=== PATIENT | female | born 1935 | race Hispanic/Latino ===

== ENCOUNTER 2021-03-05 23:49 | Inpatient (IN) | payer MEDICARE, OTHER ==
[~2021-03-05] VITALS: Ht 156.7 cm; Wt 112.7 kg
[2021-03-06] VITALS (18 sets, daily range): BP systolic 112–154; BP diastolic 49–80
[2021-03-06 00:52] LABS: BASOPHILS % (AUTO) 0.3 % (0.0-5.0); EOSINOPHILS % (AUTO) 1.3 % (0.0-8.0); HEMATOCRIT 34.9 % (36-48); LYMPHOCYTES % (AUTO) 27.8 % (21.0-51.0); MEAN CORPUSCULAR HEMOGLOBIN 28.9 pg (27.0-33.0); MEAN CORPUSCULAR HGB CONC 30.9 g/dL (32.0-36.0); MEAN CORPUSCULAR VOLUME 93.3 fL (79-99); MONOCYTES % (AUTO) 13.3 % (3.0-13.0); NEUTROPHILS % (AUTO) 56.7 % (40.0-77.0); PLATELET COUNT (AUTO) 270 K/uL (130-400); RED BLOOD CELL COUNT(AUTO) 3.74 MIL/uL (4.00-5.50); RED CELL DISTRIBUTION WIDTH 16.5 % (11.0-15.5); WHITE BLOOD COUNT (AUTO) 14.3 K/uL (4.8-10.8)
[2021-03-06 01:03] LABS: CREATININE 0.6 mg/dL (0.5-1.5); INR 1.04 (0.85-1.15); POTASSIUM 4.6 mmol/L (3.5-5.1); PROTHROMBIN TIME 11.3 SEC (9.6-11.6)
[2021-03-06 01:05] LABS: PARTIAL THROMBOPLASTIN TIME 26.4 SEC (26.3-35.5)
[2021-03-06 01:08] LABS: ALBUMIN 3.1 g/dL (3.5-5.0); BILIRUBIN,TOTAL 0.3 mg/dL (0.2-1.0); TOTAL PROTEIN, SERUM 6.8 g/dL (6.0-8.3)
[2021-03-06 01:10] LABS: B-TYPE NATRIURETIC PEPTIDE 358 pg/mL (0-100)
[2021-03-06 01:26] LABS: ABG BASE EXCESS 5.6 mmol/L (-2.0-3.0); ABG HCO3 33.1 mmol/L (21.0-28.0); ABG OXYGEN SATURATION 75.9 % (95.0-99.0); ABG PCO2 60 mmHg (32-45)
[2021-03-06] MEDS ORDERED: ASPIRIN 81MG CHEW TAB PO ONE (01:30)
[2021-03-06] MEDS ORDERED: FUROSEMIDE 40MG VIAL IV ONE (01:30)
[2021-03-06] MEDS ORDERED: ATOR10TA69 PO (02:07)
[2021-03-06] MEDS ORDERED: LOSA25TA41 PO (02:07)
[2021-03-06] MEDS ORDERED: FOLI1TAB85 PO (02:07)
[2021-03-06] MEDS ORDERED: GABA300C PO (02:07)
[2021-03-06] MEDS ORDERED: SERT-438 PO (02:07)
[2021-03-06] MEDS ORDERED: SITA50TA PO (02:07)
[2021-03-06] MEDS ORDERED: METO50TA18 PO (02:07)
[2021-03-06] MEDS ORDERED: ONDANSETRON 4MG INJ IV PRN (02:30)
[2021-03-06] MEDS ORDERED: MORPHINE 4 MG SYG IV PRN (02:30)
[2021-03-06 02:49] LABS: APPEARANCE,URINE Clear (CLEAR); BILIRUBIN,URINE Negative (NEGATIVE); COLOR,URINE Yellow (YELLOW); GLUCOSE, URINE (UA) Negative (NEGATIVE); KETONES,URINE Negative (NEGATIVE); LEUKOCYTE ESTERASE ,URINE Negative (NEGATIVE); NITRATE,URINE Negative (NEGATIVE); OCCULT BLOOD,URINE Nonhemolyzed Trace (NEGATIVE); PROTEIN,URINE POS 1+ mg/dL (NEGATIVE); UROBILINOGEN,URINE 0.2 mg/dL (0.2-1.0)
[2021-03-06] MEDS ORDERED: SODIUM CHLORIDE 3% FOR INHALATION 4 ML/AMP VIAL.NEB IH ONE (02:51)
[2021-03-06] MEDS: NITROGLYCERIN 1GM OINT 1 INCH/1GM TD SCH ×3 (02:56→17:42)
[2021-03-06] MEDS: CEFTRIAXONE 1G VIAL IV SCH (02:56)
[2021-03-06 03:05] LABS: BACTERIA,URINE None Seen /HPF (None Seen); SQUAMOUS EPITHELIAL CELL,UR Rare /HPF (0-2); WBC,URINE 0-1 /HPF (0-1)
[2021-03-06] MEDS: DOXYCYCLINE 100MG+NS 250ML 250 ML IV SCH ×2 (03:13→14:57)
[2021-03-06] MEDS ORDERED: ALBUTEROL 0.083% 2.5 MG/3 ML INH IH PRN (06:00)
[2021-03-06] MEDS ORDERED: SOLU-MEDROL 125MG VIAL IVP SCH (06:10)
[2021-03-06] MEDS ORDERED: FUROSEMIDE 40MG VIAL IVP SCH (09:00)
[2021-03-06 09:14] LABS: CREATININE 0.6 mg/dL (0.5-1.5); POTASSIUM 4.5 mmol/L (3.5-5.1)
[2021-03-06] MEDS: FAMOTIDINE 20MG VIAL IV SCH (10:32)
[2021-03-06] MEDS: ENOXAPARIN SODIUM 40 MG/0.4 ML SYRINGE SQ SCH (10:34)
[2021-03-06 12:00] LABS: ABG HCO3 37.4 mmol/L (21.0-28.0); ABG OXYGEN SATURATION 97.2 % (95.0-99.0); ABG PCO2 68 mmHg (32-45)
[2021-03-06] MEDS: FUROSEMIDE 40MG VIAL IV SCH ×2 (12:00→20:13)
[2021-03-06] MEDS ORDERED: DEXTROSE 50%-WATER 50 ML DISP.SYRIN IV PRN (14:00)
[2021-03-06] MEDS ORDERED: GLUCAGON 1MG KIT 1 MG ML IM PRN (14:00)
[2021-03-06] MEDS: GABAPENTIN 300 MG CAPSULE PO SCH ×2 (14:57→20:12)
[2021-03-06] MEDS: INSULIN HUMULIN R 100 UNIT/ML 3ML SQ SCH ×2 (16:30→20:15)
[2021-03-06 17:14] LABS: CREATININE 0.7 mg/dL (0.5-1.5); POTASSIUM 4.7 mmol/L (3.5-5.1)
[2021-03-06] MEDS: METOPROLOL TARTRATE 50 MG TAB PO SCH (17:42)
[2021-03-06] MEDS ORDERED: POTASSIUM CHLORIDE 10% ELIXIR 20 MEQ/15 ML UDCUP PO PRN (18:30)
[2021-03-06] MEDS ORDERED: POTASSIUM CHLORIDE 20MEQ/100ML 100 ML IV PRN (18:30)
[2021-03-06] MEDS ORDERED: LIDOCAINE HCL-MPF 1% 2ML VIAL IV PRN (18:30)
[2021-03-06] MEDS: ATORVASTATIN 10 MG TABLET PO SCH (20:12)
[2021-03-06] MEDS: SERTRALINE HCL 50 MG TABLET PO SCH (20:12)
[2021-03-06] MEDS: SOLU-MEDROL 125MG VIAL IVP SCH (20:13)
[2021-03-07] VITALS (25 sets, daily range): BP systolic 118–161; BP diastolic 48–95
[2021-03-07 00:36] LABS: CREATININE 0.8 mg/dL (0.5-1.5); POTASSIUM 5.1 mmol/L (3.5-5.1)
[2021-03-07] MEDS: CEFTRIAXONE 1G VIAL IV SCH (02:03)
[2021-03-07] MEDS: DOXYCYCLINE 100MG+NS 250ML 250 ML IV SCH ×2 (02:03→13:01)
[2021-03-07] MEDS: NITROGLYCERIN 1GM OINT 1 INCH/1GM TD SCH ×3 (02:04→19:07)
[2021-03-07 03:34] LABS: BASOPHILS % (AUTO) 0.2 % (0.0-5.0); LYMPHOCYTES % (AUTO) 20.7 % (21.0-51.0); MEAN CORPUSCULAR HEMOGLOBIN 29.2 pg (27.0-33.0); MEAN CORPUSCULAR HGB CONC 30.9 g/dL (32.0-36.0); MEAN CORPUSCULAR VOLUME 94.4 fL (79-99); MONOCYTES % (AUTO) 2.5 % (3.0-13.0); NEUTROPHILS % (AUTO) 75.9 % (40.0-77.0); PLATELET COUNT (AUTO) 269 K/uL (130-400); RED CELL DISTRIBUTION WIDTH 16.1 % (11.0-15.5); WHITE BLOOD COUNT (AUTO) 9.5 K/uL (4.8-10.8)
[2021-03-07 03:43] LABS: HEMOGLOBIN A1C 5.7 % (4.0-6.0)
[2021-03-07 03:48] LABS: CREATININE 0.8 mg/dL (0.5-1.5); POTASSIUM 4.4 mmol/L (3.5-5.1)
[2021-03-07 03:56] LABS: ALBUMIN 2.9 g/dL (3.5-5.0); BILIRUBIN,TOTAL 0.2 mg/dL (0.2-1.0); MAGNESIUM 1.4 mg/dL (1.80-2.40); TOTAL PROTEIN, SERUM 6.6 g/dL (6.0-8.3)
[2021-03-07] MEDS: FUROSEMIDE 40MG VIAL IV SCH ×3 (04:01→21:52)
[2021-03-07] MEDS ORDERED: MAGNESIUM OXIDE 400 MG TABLET PO ONE ×3 (04:44→05:00)
[2021-03-07] MEDS: IPRATROPIUM/ALBUTEROL SULFATE 3 ML SOLUTION IH SCH ×3 (06:00→18:47)
[2021-03-07] MEDS: INSULIN HUMULIN R 100 UNIT/ML 3ML SQ SCH ×4 (06:11→21:55)
[2021-03-07] MEDS ORDERED: POTASSIUM PHOS 15 mMOL+NS250ML 250 ML IV PRN (08:30)
[2021-03-07] MEDS: SOLU-MEDROL 125MG VIAL IVP SCH ×2 (08:31→21:53)
[2021-03-07] MEDS: ENOXAPARIN SODIUM 40 MG/0.4 ML SYRINGE SQ SCH (08:31)
[2021-03-07] MEDS: FAMOTIDINE 20MG VIAL IV SCH (08:31)
[2021-03-07] MEDS: METOPROLOL TARTRATE 50 MG TAB PO SCH ×2 (08:32→16:51)
[2021-03-07] MEDS: GABAPENTIN 300 MG CAPSULE PO SCH ×3 (08:32→21:53)
[2021-03-07] MEDS: LOSARTAN 25 MG TABLET PO SCH (08:32)
[2021-03-07] MEDS: Vitamin B Complex/Vit C/Folic Acid PO SCH (08:32)
[2021-03-07] MEDS: MAGNESIUM 2GM PREMIX 50ML 50 ML IV PRN (08:38)
[2021-03-07] MEDS ORDERED: MAGNESIUM 2GM PREMIX 50ML 50 ML IV PRN (09:30)
[2021-03-07] MEDS ORDERED: SODIUM CHLORIDE 3% FOR INHALATION 4 ML/AMP VIAL.NEB IH ONE (11:15)
[2021-03-07] MEDS: SERTRALINE HCL 50 MG TABLET PO SCH (21:53)
[2021-03-07] MEDS: ATORVASTATIN 10 MG TABLET PO SCH (21:53)
[2021-03-08] VITALS (24 sets, daily range): BP systolic 107–161; BP diastolic 43–114
[2021-03-08] MEDS: CEFTRIAXONE 1G VIAL IV SCH (03:39)
[2021-03-08] MEDS: DOXYCYCLINE 100MG+NS 250ML 250 ML IV SCH ×2 (03:39→14:13)
[2021-03-08] MEDS: NITROGLYCERIN 1GM OINT 1 INCH/1GM TD SCH ×3 (03:40→17:01)
[2021-03-08 04:37] LABS: HEMATOCRIT 35.9 % (36-48); MEAN CORPUSCULAR HEMOGLOBIN 28.7 pg (27.0-33.0); MEAN CORPUSCULAR HGB CONC 31.2 g/dL (32.0-36.0); MEAN CORPUSCULAR VOLUME 92.1 fL (79-99); RED BLOOD CELL COUNT(AUTO) 3.9 MIL/uL (4.00-5.50); RED CELL DISTRIBUTION WIDTH 16.5 % (11.0-15.5)
[2021-03-08 05:00] LABS: MAGNESIUM 1.9 mg/dL (1.80-2.40); PHOSPHORUS 4.3 mg/dL (2.5-4.9); POTASSIUM 4.4 mmol/L (3.5-5.1)
[2021-03-08] MEDS: IPRATROPIUM/ALBUTEROL SULFATE 3 ML SOLUTION IH SCH ×4 (06:15→18:57)
[2021-03-08] MEDS: INSULIN HUMULIN R 100 UNIT/ML 3ML SQ SCH ×4 (06:19→21:03)
[2021-03-08] MEDS ORDERED: IOHEXOL 350 MG/ML 100ML INFUS..BTL IV ONE (07:14)
[2021-03-08] MEDS: SOLU-MEDROL 125MG VIAL IVP SCH (08:39)
[2021-03-08] MEDS: FUROSEMIDE 40MG VIAL IV SCH ×2 (08:39→21:00)
[2021-03-08] MEDS: LOSARTAN 25 MG TABLET PO SCH (08:39)
[2021-03-08] MEDS: METOPROLOL TARTRATE 50 MG TAB PO SCH ×2 (08:39→16:56)
[2021-03-08] MEDS: FAMOTIDINE 20MG VIAL IV SCH (08:39)
[2021-03-08] MEDS: Vitamin B Complex/Vit C/Folic Acid PO SCH (08:40)
[2021-03-08] MEDS: GABAPENTIN 300 MG CAPSULE PO SCH ×3 (08:40→21:00)
[2021-03-08] MEDS: ENOXAPARIN SODIUM 40 MG/0.4 ML SYRINGE SQ SCH (08:41)
[2021-03-08] MEDS ORDERED: FUROSEMIDE 40MG VIAL IV SCH (12:00)
[2021-03-08] MEDS: ATORVASTATIN 10 MG TABLET PO SCH (21:00)
[2021-03-08] MEDS: SERTRALINE HCL 50 MG TABLET PO SCH (21:00)
[2021-03-09] VITALS (21 sets, daily range): BP systolic 111–154; BP diastolic 40–76
[2021-03-09] MEDS: IPRATROPIUM/ALBUTEROL SULFATE 3 ML SOLUTION IH SCH ×5 (00:45→23:13)
[2021-03-09] MEDS: CEFTRIAXONE 1G VIAL IV SCH (01:43)
[2021-03-09] MEDS: DOXYCYCLINE 100MG+NS 250ML 250 ML IV SCH ×2 (01:43→13:46)
[2021-03-09] MEDS: NITROGLYCERIN 1GM OINT 1 INCH/1GM TD SCH ×3 (03:56→16:16)
[2021-03-09] MEDS ORDERED: SODIUM CHLORIDE 3% FOR INHALATION 4 ML/AMP VIAL.NEB IH ONE (06:12)
[2021-03-09] MEDS: INSULIN HUMULIN R 100 UNIT/ML 3ML SQ SCH ×4 (06:31→21:18)
[2021-03-09 06:53] LABS: CREATININE 0.8 mg/dL (0.5-1.5); MAGNESIUM 1.9 mg/dL (1.80-2.40); POTASSIUM 3.6 mmol/L (3.5-5.1)
[2021-03-09] MEDS: FUROSEMIDE 40MG VIAL IV SCH ×2 (08:25→21:26)
[2021-03-09] MEDS: LOSARTAN 25 MG TABLET PO SCH (08:25)
[2021-03-09] MEDS: Vitamin B Complex/Vit C/Folic Acid PO SCH (08:25)
[2021-03-09] MEDS: FAMOTIDINE 20MG VIAL IV SCH (08:25)
[2021-03-09] MEDS: GABAPENTIN 300 MG CAPSULE PO SCH ×3 (08:25→21:22)
[2021-03-09] MEDS: METOPROLOL TARTRATE 50 MG TAB PO SCH ×2 (08:25→16:15)
[2021-03-09] MEDS: KCL 20 MEQ ERTAB PO PRN ×2 (08:26→13:46)
[2021-03-09] MEDS: ENOXAPARIN SODIUM 40 MG/0.4 ML SYRINGE SQ SCH (08:27)
[2021-03-09] MEDS: MAGNESIUM 2GM PREMIX 50ML 50 ML IV PRN (08:27)
[2021-03-09] MEDS: TRAMADOL HCL 50 MG TABLET PO PRN (11:14)
[2021-03-09] MEDS ORDERED: METOPROLOL TARTRATE 25 MG TAB PO ONE (18:00)
[2021-03-09] MEDS: ATORVASTATIN 10 MG TABLET PO SCH (21:21)
[2021-03-09] MEDS: SERTRALINE HCL 50 MG TABLET PO SCH (21:21)
[2021-03-10] VITALS (23 sets, daily range): BP systolic 118–164; BP diastolic 52–76
[2021-03-10] MEDS: DOXYCYCLINE 100MG+NS 250ML 250 ML IV SCH ×2 (02:56→13:51)
[2021-03-10] MEDS: NITROGLYCERIN 1GM OINT 1 INCH/1GM TD SCH ×3 (02:57→17:37)
[2021-03-10] MEDS: CEFTRIAXONE 1G VIAL IV SCH (02:58)
[2021-03-10 03:31] LABS: HEMATOCRIT 41.7 % (36-48); MEAN CORPUSCULAR HEMOGLOBIN 28.7 pg (27.0-33.0); MEAN CORPUSCULAR VOLUME 98.8 fL (79-99); RED BLOOD CELL COUNT(AUTO) 4.22 MIL/uL (4.00-5.50); RED CELL DISTRIBUTION WIDTH 16.3 % (11.0-15.5); WHITE BLOOD COUNT (AUTO) 16.5 K/uL (4.8-10.8)
[2021-03-10 03:41] LABS: POTASSIUM 4.7 mmol/L (3.5-5.1)
[2021-03-10 03:44] LABS: MAGNESIUM 2.1 mg/dL (1.80-2.40); PHOSPHORUS 4.9 mg/dL (2.5-4.9)
[2021-03-10] MEDS: INSULIN HUMULIN R 100 UNIT/ML 3ML SQ SCH ×4 (05:53→20:43)
[2021-03-10] MEDS: IPRATROPIUM/ALBUTEROL SULFATE 3 ML SOLUTION IH SCH ×5 (06:55→23:49)
[2021-03-10] MEDS: FAMOTIDINE 20MG VIAL IV SCH (08:12)
[2021-03-10] MEDS: GABAPENTIN 300 MG CAPSULE PO SCH ×3 (08:12→21:16)
[2021-03-10] MEDS: Vitamin B Complex/Vit C/Folic Acid PO SCH (08:12)
[2021-03-10] MEDS: LOSARTAN 25 MG TABLET PO SCH (08:12)
[2021-03-10] MEDS: METOPROLOL TARTRATE 50 MG TAB PO SCH ×2 (08:13→17:37)
[2021-03-10] MEDS: FUROSEMIDE 40MG VIAL IV SCH (08:13)
[2021-03-10] MEDS: ENOXAPARIN SODIUM 40 MG/0.4 ML SYRINGE SQ SCH (08:14)
[2021-03-10] MEDS: APIXABAN 5 MG TABLET PO SCH (21:15)
[2021-03-10] MEDS: ATORVASTATIN 10 MG TABLET PO SCH (21:15)
[2021-03-10] MEDS: ZOSYN 3.375GM +NS 50ML IV SCH (21:15)
[2021-03-10] MEDS: SERTRALINE HCL 50 MG TABLET PO SCH (21:15)
[2021-03-11] VITALS (11 sets, daily range): BP systolic 112–158; BP diastolic 45–76
[2021-03-11] MEDS: NITROGLYCERIN 1GM OINT 1 INCH/1GM TD SCH (01:50)
[2021-03-11] MEDS: DOXYCYCLINE 100MG+NS 250ML 250 ML IV SCH (01:50)
[2021-03-11] MEDS: ZOSYN 3.375GM +NS 50ML IV SCH ×2 (03:13→10:02)
[2021-03-11 04:21] LABS: CREATININE 0.9 mg/dL (0.5-1.5); POTASSIUM 5.8 mmol/L (3.5-5.1)
[2021-03-11 04:28] LABS: MEAN CORPUSCULAR HGB CONC 29.7 g/dL (32.0-36.0); MEAN CORPUSCULAR VOLUME 97.4 fL (79-99); RED BLOOD CELL COUNT(AUTO) 3.9 MIL/uL (4.00-5.50); RED CELL DISTRIBUTION WIDTH 16.1 % (11.0-15.5); WHITE BLOOD COUNT (AUTO) 13.9 K/uL (4.8-10.8)
[2021-03-11] MEDS: IPRATROPIUM/ALBUTEROL SULFATE 3 ML SOLUTION IH SCH ×3 (06:19→18:22)
[2021-03-11] MEDS: INSULIN HUMULIN R 100 UNIT/ML 3ML SQ SCH ×4 (07:30→21:22)
[2021-03-11 08:06] LABS: MAGNESIUM 2.1 mg/dL (1.80-2.40); POTASSIUM 4.7 mmol/L (3.5-5.1)
[2021-03-11] MEDS: FUROSEMIDE 20 MG TABLET PO SCH ×2 (08:27→16:38)
[2021-03-11] MEDS: APIXABAN 5 MG TABLET PO SCH ×2 (08:27→21:20)
[2021-03-11] MEDS: METOPROLOL TARTRATE 50 MG TAB PO SCH ×2 (08:28→16:38)
[2021-03-11] MEDS: GABAPENTIN 300 MG CAPSULE PO SCH ×3 (08:28→21:20)
[2021-03-11] MEDS: Vitamin B Complex/Vit C/Folic Acid PO SCH (08:28)
[2021-03-11] MEDS: FAMOTIDINE 20MG VIAL IV SCH (08:28)
[2021-03-11] MEDS ORDERED: KAYEXALATE 15GM/60ML PO ONE (08:45)
[2021-03-11] MEDS ORDERED: KCL 20 MEQ ERTAB PO SCH (09:00)
[2021-03-11] MEDS ORDERED: 0.9%NACL 50ML 50 ML IV ONE (10:01)
[2021-03-11] MEDS ORDERED: METOPROLOL TARTRATE 1 MG/ML 5ML VIAL IV ONE (14:30)
[2021-03-11] MEDS: CEFTRIAXONE 2GM VIAL IVP SCH (14:35)
[2021-03-11] MEDS: SERTRALINE HCL 50 MG TABLET PO SCH (21:20)
[2021-03-11] MEDS: ATORVASTATIN 10 MG TABLET PO SCH (21:20)
[2021-03-12] VITALS: BP 144/50
[2021-03-12] MEDS: IPRATROPIUM/ALBUTEROL SULFATE 3 ML SOLUTION IH SCH ×4 (00:22→18:40)
[2021-03-12] MEDS: TRAMADOL HCL 50 MG TABLET PO PRN (00:28)
[2021-03-12 04:00] VITALS: BP 154/70
[2021-03-12 06:00] LABS: BASOPHILS % (AUTO) 0.3 % (0.0-5.0); EOSINOPHILS % (AUTO) 1.9 % (0.0-8.0); HEMATOCRIT 38.9 % (36-48); LYMPHOCYTES % (AUTO) 34.7 % (21.0-51.0); MEAN CORPUSCULAR HEMOGLOBIN 28.5 pg (27.0-33.0); MEAN CORPUSCULAR HGB CONC 29.3 g/dL (32.0-36.0); MEAN CORPUSCULAR VOLUME 97.3 fL (79-99); NEUTROPHILS % (AUTO) 54.4 % (40.0-77.0); PLATELET COUNT (AUTO) 234 K/uL (130-400); RED CELL DISTRIBUTION WIDTH 16.3 % (11.0-15.5)
[2021-03-12 06:08] LABS: CREATININE 1.1 mg/dL (0.5-1.5); MAGNESIUM 2.1 mg/dL (1.80-2.40); POTASSIUM 4.2 mmol/L (3.5-5.1)
[2021-03-12] MEDS: INSULIN HUMULIN R 100 UNIT/ML 3ML SQ SCH ×2 (06:38→11:31)
[2021-03-12 07:47] VITALS: BP 153/69
[2021-03-12] MEDS: FUROSEMIDE 20 MG TABLET PO SCH ×2 (09:31→17:36)
[2021-03-12] MEDS: GABAPENTIN 300 MG CAPSULE PO SCH ×3 (09:31→20:59)
[2021-03-12] MEDS: METOPROLOL TARTRATE 50 MG TAB PO SCH ×2 (09:31→17:37)
[2021-03-12] MEDS: FAMOTIDINE 20MG VIAL IV SCH (09:31)
[2021-03-12] MEDS: Vitamin B Complex/Vit C/Folic Acid PO SCH (09:31)
[2021-03-12] MEDS: APIXABAN 5 MG TABLET PO SCH ×2 (09:32→20:59)
[2021-03-12 11:00] VITALS: BP 137/70
[2021-03-12] MEDS: CEFTRIAXONE 2GM VIAL IVP SCH (14:35)
[2021-03-12 15:26] LABS: ABG BASE EXCESS 16.1 mmol/L (-2.0-3.0); ABG HCO3 45.7 mmol/L (21.0-28.0); ABG OXYGEN SATURATION 98.5 % (95.0-99.0); ABG PCO2 79 mmHg (32-45)
[2021-03-12 15:43] VITALS: BP 141/54
[2021-03-12 19:00] VITALS: BP 162/58
[2021-03-12 19:55] LABS: ALBUMIN 2.7 g/dL (3.5-5.0); BILIRUBIN,TOTAL 0.2 mg/dL (0.2-1.0); CREATININE 1.3 mg/dL (0.5-1.5); POTASSIUM 4.1 mmol/L (3.5-5.1); TOTAL PROTEIN, SERUM 6.2 g/dL (6.0-8.3)
[2021-03-12] MEDS: ATORVASTATIN 10 MG TABLET PO SCH (20:58)
[2021-03-12] MEDS: SERTRALINE HCL 50 MG TABLET PO SCH (20:59)
[2021-03-12] MEDS ORDERED: INSULIN HUMULIN R 100 UNIT/ML 3ML SQ SCH (21:00)
[2021-03-13] VITALS (7 sets, daily range): BP systolic 105–158; BP diastolic 59–72
[2021-03-13] MEDS: IPRATROPIUM/ALBUTEROL SULFATE 3 ML SOLUTION IH SCH ×4 (00:42→18:43)
[2021-03-13 04:09] LABS: ABG BASE EXCESS 11.4 mmol/L (-2.0-3.0); ABG HCO3 38.8 mmol/L (21.0-28.0); ABG OXYGEN SATURATION 94.9 % (95.0-99.0); ABG PCO2 66 mmHg (32-45)
[2021-03-13] MEDS: APIXABAN 5 MG TABLET PO SCH ×2 (09:34→20:48)
[2021-03-13] MEDS: METOPROLOL TARTRATE 50 MG TAB PO SCH ×2 (09:34→16:53)
[2021-03-13] MEDS: Vitamin B Complex/Vit C/Folic Acid PO SCH (09:34)
[2021-03-13] MEDS: GABAPENTIN 300 MG CAPSULE PO SCH ×3 (09:34→20:48)
[2021-03-13] MEDS: FAMOTIDINE 20MG VIAL IV SCH (09:34)
[2021-03-13] MEDS: NACL IV SCH (09:34)
[2021-03-13] MEDS: CEFTRIAXONE 2GM VIAL IVP SCH (14:27)
[2021-03-13 17:49] LABS: ALBUMIN 2.7 g/dL (3.5-5.0); BILIRUBIN,TOTAL 0.1 mg/dL (0.2-1.0); CREATININE 0.9 mg/dL (0.5-1.5); POTASSIUM 4.2 mmol/L (3.5-5.1); TOTAL PROTEIN, SERUM 6.1 g/dL (6.0-8.3)
[2021-03-13] MEDS: ATORVASTATIN 10 MG TABLET PO SCH (20:48)
[2021-03-13] MEDS: SERTRALINE HCL 50 MG TABLET PO SCH (20:48)
[2021-03-14] MEDS: IPRATROPIUM/ALBUTEROL SULFATE 3 ML SOLUTION IH SCH ×5 (00:03→23:12)
[2021-03-14 04:00] VITALS: BP 151/72
[2021-03-14] MEDS: NACL IV SCH (07:46)
[2021-03-14 07:47] VITALS: BP 147/59
[2021-03-14] MEDS ORDERED: LOSARTAN 25 MG TABLET PO SCH (09:00)
[2021-03-14] MEDS: METOPROLOL TARTRATE 50 MG TAB PO SCH ×2 (09:24→16:38)
[2021-03-14] MEDS: FAMOTIDINE 20MG VIAL IV SCH (09:38)
[2021-03-14] MEDS: APIXABAN 5 MG TABLET PO SCH ×2 (09:38→20:04)
[2021-03-14] MEDS: GABAPENTIN 300 MG CAPSULE PO SCH ×3 (09:38→20:04)
[2021-03-14] MEDS: Vitamin B Complex/Vit C/Folic Acid PO SCH (09:38)
[2021-03-14 10:48] VITALS: BP 168/65
[2021-03-14] MEDS: CEFTRIAXONE 2GM VIAL IVP SCH (14:52)
[2021-03-14 17:04] VITALS: BP 158/63
[2021-03-14 19:33] VITALS: BP 125/59
[2021-03-14] MEDS: ATORVASTATIN 10 MG TABLET PO SCH (20:04)
[2021-03-14] MEDS: SERTRALINE HCL 50 MG TABLET PO SCH (20:04)
[2021-03-14 23:19] VITALS: BP 157/68
[2021-03-15 03:41] VITALS: BP 157/70
[2021-03-15] MEDS: IPRATROPIUM/ALBUTEROL SULFATE 3 ML SOLUTION IH SCH ×4 (06:22→23:06)
[2021-03-15] MEDS: NACL IV SCH (08:00)
[2021-03-15] MEDS: METOPROLOL TARTRATE 50 MG TAB PO SCH ×2 (08:32→16:13)
[2021-03-15] MEDS: FAMOTIDINE 20MG VIAL IV SCH (10:41)
[2021-03-15] MEDS: FUROSEMIDE 20 MG TABLET PO SCH ×2 (10:42→16:13)
[2021-03-15] MEDS: GABAPENTIN 300 MG CAPSULE PO SCH ×3 (10:42→20:20)
[2021-03-15] MEDS: LOSARTAN 25 MG TABLET PO SCH ×2 (10:42→20:17)
[2021-03-15] MEDS: Vitamin B Complex/Vit C/Folic Acid PO SCH (10:42)
[2021-03-15] MEDS: APIXABAN 5 MG TABLET PO SCH ×2 (10:44→20:20)
[2021-03-15 10:56] VITALS: BP 110/58
[2021-03-15] MEDS: CEFTRIAXONE 2GM VIAL IVP SCH (14:29)
[2021-03-15 16:18] VITALS: BP 135/92
[2021-03-15 20:09] VITALS: BP 100/63
[2021-03-15] MEDS: ATORVASTATIN 10 MG TABLET PO SCH (20:20)
[2021-03-15] MEDS: SERTRALINE HCL 50 MG TABLET PO SCH (20:20)
[2021-03-15 23:45] VITALS: BP 151/61
[2021-03-16 03:48] VITALS: BP 157/71
[2021-03-16] MEDS: IPRATROPIUM/ALBUTEROL SULFATE 3 ML SOLUTION IH SCH ×4 (06:20→23:10)
[2021-03-16] MEDS: NACL IV SCH (07:43)
[2021-03-16] MEDS: METOPROLOL TARTRATE 50 MG TAB PO SCH ×2 (07:43→16:57)
[2021-03-16 07:56] VITALS: BP 141/72
[2021-03-16] MEDS: FUROSEMIDE 20 MG TABLET PO SCH ×2 (07:57→16:57)
[2021-03-16] MEDS: ACETAMINOPHEN 325 MG TAB PO PRN (08:06)
[2021-03-16 09:37] LABS: BASOPHILS % (AUTO) 0.3 % (0.0-5.0); EOSINOPHILS % (AUTO) 3.4 % (0.0-8.0); MEAN CORPUSCULAR HEMOGLOBIN 28.4 pg (27.0-33.0); MEAN CORPUSCULAR HGB CONC 29.7 g/dL (32.0-36.0); MEAN CORPUSCULAR VOLUME 95.4 fL (79-99); PLATELET COUNT (AUTO) 213 K/uL (130-400); RED BLOOD CELL COUNT(AUTO) 3.88 MIL/uL (4.00-5.50); RED CELL DISTRIBUTION WIDTH 15.9 % (11.0-15.5); WHITE BLOOD COUNT (AUTO) 10.5 K/uL (4.8-10.8)
[2021-03-16] MEDS: FAMOTIDINE 20MG VIAL IV SCH (09:41)
[2021-03-16 09:52] LABS: ALBUMIN 2.7 g/dL (3.5-5.0); CREATININE 0.8 mg/dL (0.5-1.5); PHOSPHORUS 3.7 mg/dL (2.5-4.9); POTASSIUM 4.1 mmol/L (3.5-5.1)
[2021-03-16 09:57] LABS: B-TYPE NATRIURETIC PEPTIDE 227 pg/mL (0-100)
[2021-03-16 09:58] LABS: BILIRUBIN,TOTAL 0.3 mg/dL (0.2-1.0); MAGNESIUM 1.7 mg/dL (1.80-2.40); TOTAL PROTEIN, SERUM 5.9 g/dL (6.0-8.3)
[2021-03-16 10:10] LABS: % IRON SATURATION 18.8 % (22-44)
[2021-03-16] MEDS: GABAPENTIN 300 MG CAPSULE PO SCH ×3 (10:10→21:19)
[2021-03-16] MEDS: Vitamin B Complex/Vit C/Folic Acid PO SCH (10:10)
[2021-03-16 10:17] LABS: THYROID STIMULATING HORMONE 1.93 uIU/mL (0.36-3.74)
[2021-03-16 11:30] VITALS: BP 125/44
[2021-03-16] MEDS: LOSARTAN 25 MG TABLET PO SCH ×2 (11:52→21:21)
[2021-03-16] MEDS: APIXABAN 5 MG TABLET PO SCH ×2 (11:53→21:20)
[2021-03-16] MEDS: CEFTRIAXONE 2GM VIAL IVP SCH (13:17)
[2021-03-16 16:16] VITALS: BP 132/66
[2021-03-16 20:45] VITALS: BP 127/48
[2021-03-16] MEDS: ATORVASTATIN 10 MG TABLET PO SCH (21:19)
[2021-03-16] MEDS: SERTRALINE HCL 50 MG TABLET PO SCH (21:20)
[2021-03-16 23:53] VITALS: BP 129/60
[2021-03-17 04:11] VITALS: BP 131/61
[2021-03-17 04:50] LABS: HEMATOCRIT 34.5 % (36-48); MEAN CORPUSCULAR HEMOGLOBIN 28.3 pg (27.0-33.0); MEAN CORPUSCULAR HGB CONC 30.1 g/dL (32.0-36.0); RED BLOOD CELL COUNT(AUTO) 3.67 MIL/uL (4.00-5.50); RED CELL DISTRIBUTION WIDTH 15.9 % (11.0-15.5); WHITE BLOOD COUNT (AUTO) 12.9 K/uL (4.8-10.8)
[2021-03-17 05:19] LABS: CREATININE 0.7 mg/dL (0.5-1.5); MAGNESIUM 1.7 mg/dL (1.80-2.40); POTASSIUM 4.1 mmol/L (3.5-5.1)
[2021-03-17] MEDS: IPRATROPIUM/ALBUTEROL SULFATE 3 ML SOLUTION IH SCH ×4 (06:18→23:09)
[2021-03-17 07:54] LABS: ABG HCO3 40.1 mmol/L (21.0-28.0); ABG OXYGEN SATURATION 92.8 % (95.0-99.0); ABG PCO2 67 mmHg (32-45)
[2021-03-17] MEDS: NACL IV SCH (08:00)
[2021-03-17 08:20] VITALS: BP 150/66
[2021-03-17] MEDS: FAMOTIDINE 20MG VIAL IV SCH (09:07)
[2021-03-17] MEDS: LOSARTAN 25 MG TABLET PO SCH ×2 (09:07→19:54)
[2021-03-17] MEDS: Vitamin B Complex/Vit C/Folic Acid PO SCH (09:07)
[2021-03-17] MEDS: GABAPENTIN 300 MG CAPSULE PO SCH ×3 (09:07→20:03)
[2021-03-17] MEDS: FUROSEMIDE 20 MG TABLET PO SCH ×2 (09:07→16:32)
[2021-03-17] MEDS: APIXABAN 5 MG TABLET PO SCH ×2 (09:08→19:52)
[2021-03-17] MEDS: METOPROLOL TARTRATE 50 MG TAB PO SCH ×2 (09:11→16:33)
[2021-03-17 11:06] VITALS: BP 128/54
[2021-03-17] MEDS: CEFTRIAXONE 2GM VIAL IVP SCH (13:43)
[2021-03-17] MEDS ORDERED: EPOETIN ALFA-EPBX (NON-ESRD) 10,000 UNIT/ML VIAL SQ SCH (14:00)
[2021-03-17] MEDS ORDERED: IRON SUCROSE COMPLEX 500 MG in 0.9%NACL 50ML 50 ML IV SCH (14:00)
[2021-03-17 16:16] VITALS: BP 121/58
[2021-03-17] MEDS: ATORVASTATIN 10 MG TABLET PO SCH (19:52)
[2021-03-17] MEDS: ACETAMINOPHEN 325 MG TAB PO PRN (19:53)
[2021-03-17] MEDS: SERTRALINE HCL 50 MG TABLET PO SCH (19:53)
[2021-03-17 21:01] VITALS: BP 132/57
[2021-03-17 23:48] VITALS: BP 123/50
[2021-03-18 04:54] VITALS: BP 134/58
[2021-03-18] MEDS: IPRATROPIUM/ALBUTEROL SULFATE 3 ML SOLUTION IH SCH ×3 (06:49→18:28)
[2021-03-18 08:00] VITALS: BP 135/70
[2021-03-18] MEDS: NACL IV SCH (08:00)
[2021-03-18] MEDS: Vitamin B Complex/Vit C/Folic Acid PO SCH (09:44)
[2021-03-18] MEDS: METOPROLOL TARTRATE 50 MG TAB PO SCH ×2 (09:45→21:22)
[2021-03-18] MEDS: GABAPENTIN 300 MG CAPSULE PO SCH ×3 (09:45→21:54)
[2021-03-18] MEDS: APIXABAN 5 MG TABLET PO SCH ×2 (09:46→21:53)
[2021-03-18] MEDS: FUROSEMIDE 20 MG TABLET PO SCH ×2 (09:46→21:22)
[2021-03-18] MEDS: LOSARTAN 25 MG TABLET PO SCH ×2 (09:46→21:53)
[2021-03-18] MEDS: FAMOTIDINE 20MG VIAL IV SCH (09:47)
[2021-03-18 11:00] VITALS: BP 126/53
[2021-03-18] MEDS: CEFTRIAXONE 2GM VIAL IVP SCH (14:32)
[2021-03-18 16:00] VITALS: BP 144/77
[2021-03-18 20:00] VITALS: BP 126/63
[2021-03-18] MEDS: ATORVASTATIN 10 MG TABLET PO SCH (21:53)
[2021-03-18] MEDS: SERTRALINE HCL 50 MG TABLET PO SCH (21:54)
[2021-03-18] MEDS ORDERED: LEVO500T90 PO (23:31)
[2021-03-18] MEDS ORDERED: IPRA3AMP24 IH (23:34)
[2021-03-19] VITALS: BP 142/62
[2021-03-19] MEDS: IPRATROPIUM/ALBUTEROL SULFATE 3 ML SOLUTION IH SCH ×3 (01:12→11:59)
[2021-03-19 04:00] VITALS: BP 134/59
[2021-03-19 08:03] VITALS: BP 131/82
[2021-03-19] MEDS: Vitamin B Complex/Vit C/Folic Acid PO SCH (09:44)
[2021-03-19] MEDS: FUROSEMIDE 20 MG TABLET PO SCH (09:44)
[2021-03-19] MEDS: APIXABAN 5 MG TABLET PO SCH (09:45)
[2021-03-19] MEDS: LOSARTAN 25 MG TABLET PO SCH (09:45)
[2021-03-19] MEDS: FAMOTIDINE 20MG VIAL IV SCH (09:45)
[2021-03-19] MEDS: GABAPENTIN 300 MG CAPSULE PO SCH ×2 (09:45→14:02)
[2021-03-19] MEDS: METOPROLOL TARTRATE 50 MG TAB PO SCH (09:46)
[2021-03-19] MEDS ORDERED: LOSA25TA2 PO (10:26)
[2021-03-19] MEDS ORDERED: FURO20TA6 PO (10:26)
[2021-03-19] MEDS ORDERED: METO50 PO (10:26)
[2021-03-19] MEDS ORDERED: APIX5TAB PO (10:26)
[2021-03-19 10:48] VITALS: BP 135/87
[2021-03-19] MEDS: CEFTRIAXONE 2GM VIAL IVP SCH (14:02)
== END 2021-03-19 17:24 | disposition home or self-care (01) | DRG 177 ==
LOC: EDH 23:49 → EDHIP 03-06 02:17 → 2DH 03-06 04:25 → 4BH 03-11 12:26
PROVIDERS: ADMIT Internal Medicine; ATTEND Internal Medicine
PROC: 5A09357 Assistance with Respiratory Ventilation, Less than 24 Consecutive Hours, Continuous Positive Airway Pressure (ICD-10-PCS; principal; 2021-03-06)
PROC: 5A09357 Assistance with Respiratory Ventilation, Less than 24 Consecutive Hours, Continuous Positive Airway Pressure (ICD-10-PCS; 2021-03-07)
PROC: 5A09357 Assistance with Respiratory Ventilation, Less than 24 Consecutive Hours, Continuous Positive Airway Pressure (ICD-10-PCS; 2021-03-08)
PROC: 5A09357 Assistance with Respiratory Ventilation, Less than 24 Consecutive Hours, Continuous Positive Airway Pressure (ICD-10-PCS; 2021-03-09)
PROC: 5A09357 Assistance with Respiratory Ventilation, Less than 24 Consecutive Hours, Continuous Positive Airway Pressure (ICD-10-PCS; 2021-03-10)
PROC: 5A09357 Assistance with Respiratory Ventilation, Less than 24 Consecutive Hours, Continuous Positive Airway Pressure (ICD-10-PCS; 2021-03-11)
PROC: 5A09357 Assistance with Respiratory Ventilation, Less than 24 Consecutive Hours, Continuous Positive Airway Pressure (ICD-10-PCS; 2021-03-13)
PROC: 5A09357 Assistance with Respiratory Ventilation, Less than 24 Consecutive Hours, Continuous Positive Airway Pressure (ICD-10-PCS; 2021-03-14)
PROC: 5A09357 Assistance with Respiratory Ventilation, Less than 24 Consecutive Hours, Continuous Positive Airway Pressure (ICD-10-PCS; 2021-03-15)
PROC: 5A09357 Assistance with Respiratory Ventilation, Less than 24 Consecutive Hours, Continuous Positive Airway Pressure (ICD-10-PCS; 2021-03-16)
PROC: 5A09357 Assistance with Respiratory Ventilation, Less than 24 Consecutive Hours, Continuous Positive Airway Pressure (ICD-10-PCS; 2021-03-17)
PROC: 5A09357 Assistance with Respiratory Ventilation, Less than 24 Consecutive Hours, Continuous Positive Airway Pressure (ICD-10-PCS; 2021-03-18)
PROC: 5A09357 Assistance with Respiratory Ventilation, Less than 24 Consecutive Hours, Continuous Positive Airway Pressure (ICD-10-PCS; 2021-03-19)
DX: J15.0 Pneumonia due to Klebsiella pneumoniae (principal); I50.33 Acute on chronic diastolic (congestive) heart failure; J96.21 Acute and chronic respiratory failure with hypoxia; J96.22 Acute and chronic respiratory failure with hypercapnia; E66.2 Morbid (severe) obesity with alveolar hypoventilation; D68.59 Other primary thrombophilia; J44.0 Chronic obstructive pulmonary disease with (acute) lower respiratory infection; J98.11 Atelectasis; Z68.42 Body mass index [BMI] 45.0-49.9, adult; E87.3 Alkalosis; I11.0 Hypertensive heart disease with heart failure; E11.9 Type 2 diabetes mellitus without complications; I34.0 Nonrheumatic mitral (valve) insufficiency; I27.20 Pulmonary hypertension, unspecified; Z20.822 Contact with and (suspected) exposure to COVID-19; M19.90 Unspecified osteoarthritis, unspecified site; I48.0 Paroxysmal atrial fibrillation; M48.02 Spinal stenosis, cervical region; E78.5 Hyperlipidemia, unspecified; M48.061 Spinal stenosis, lumbar region without neurogenic claudication; I25.10 Atherosclerotic heart disease of native coronary artery without angina pectoris; Z74.01 Bed confinement status; Z90.49 Acquired absence of other specified parts of digestive tract; Z79.01 Long term (current) use of anticoagulants; Z79.899 Other long term (current) drug therapy; Z91.19 Patient's noncompliance with other medical treatment and regimen
CPT/HCPCS: 36415; 36600; 71045; 71275; 72141; 76000; 80048; 80053; 81001; 82140; 82435; 82550; 82607; 82728; 82746; 82803; 82947; 82948; 83036; 83540; 83550; 83605; 83735; 83880; 84100; 84132; 84145; 84295; 84443; 84484; 85018; 85025; 85027; 85045; 85378; 85610; 85730; 87040; 87071; 87077; 87186; 87205; 87635; 87804; 93005; 93306; 93356; 93970; 94640; 94660; 94760; 97039; C9803; G0378; J0696; J1650; J1756; J1815; J1940; J2405; J2543; J2930; J3475; J3490; J7070; Q9967

== ENCOUNTER 2021-07-15 11:42 | Emergency (ER) | payer OTHER, MEDICARE ==
[~2021-07-15] VITALS: Ht 160 cm; Wt 109.8 kg
[~2021-07-15 11:42] MED LIST: APIX5TAB PO; ATOR10TA69 PO; FOLI1TAB85 PO; FURO20TA6 PO; GABA300C PO; IPRA3AMP24 IH; LEVO500T90 PO; LOSA25TA2 PO; METO50 PO; SERT-438 PO; SITA50TA PO
[2021-07-15 12:27] VITALS: BP 129/40
[2021-07-15 12:32] LABS: BASOPHILS % (AUTO) 0.4 % (0.0-5.0); EOSINOPHILS % (AUTO) 1.2 % (0.0-8.0); HEMATOCRIT 25.2 % (36-48); LYMPHOCYTES % (AUTO) 35.1 % (21.0-51.0); MEAN CORPUSCULAR HEMOGLOBIN 28.6 pg (27.0-33.0); MEAN CORPUSCULAR VOLUME 98.8 fL (79-99); MONOCYTES % (AUTO) 6.6 % (3.0-13.0); NEUTROPHILS % (AUTO) 55.8 % (40.0-77.0); PLATELET COUNT (AUTO) 257 K/uL (130-400); RED BLOOD CELL COUNT(AUTO) 2.55 MIL/uL (4.00-5.50); RED CELL DISTRIBUTION WIDTH 20.8 % (11.0-15.5); WHITE BLOOD COUNT (AUTO) 12.2 K/uL (4.8-10.8)
[2021-07-15 12:58] LABS: CREATININE 0.9 mg/dL (0.5-1.5); POTASSIUM 3.8 mmol/L (3.5-5.1)
[2021-07-15 13:03] LABS: ALBUMIN 2.8 g/dL (3.5-5.0); BILIRUBIN,TOTAL 0.2 mg/dL (0.2-1.0); TOTAL PROTEIN, SERUM 6.2 g/dL (6.0-8.3)
[2021-07-15 14:14] LABS: APPEARANCE,URINE Cloudy (CLEAR); BILIRUBIN,URINE Negative (NEGATIVE); COLOR,URINE Yellow (YELLOW); GLUCOSE, URINE (UA) Negative (NEGATIVE); KETONES,URINE Negative (NEGATIVE); LEUKOCYTE ESTERASE ,URINE Large (NEGATIVE); NITRATE,URINE Positive (NEGATIVE); OCCULT BLOOD,URINE Trace (NEGATIVE); PROTEIN,URINE Negative (NEGATIVE); UROBILINOGEN,URINE 0.2 mg/dL (0.2-1.0)
[2021-07-15 14:28] LABS: BACTERIA,URINE Moderate /HPF (None Seen)
[2021-07-15 14:29] LABS: RBC,URINE 0-1 /HPF (0-1)
[2021-07-15] MEDS ORDERED: DOCU-116 PO (14:36)
[2021-07-15] MEDS ORDERED: CEPH500B PO (14:36)
[2021-07-15] MEDS ORDERED: FERS325 PO (14:36)
== END 2021-07-15 15:05 | disposition home or self-care (01) ==
LOC: EDH 11:42
DX: D64.9 Anemia, unspecified (principal); N39.0 Urinary tract infection, site not specified; E11.9 Type 2 diabetes mellitus without complications; I10 Essential (primary) hypertension; M19.90 Unspecified osteoarthritis, unspecified site; Z79.01 Long term (current) use of anticoagulants; Z79.84 Long term (current) use of oral hypoglycemic drugs; Z79.899 Other long term (current) drug therapy; Z90.49 Acquired absence of other specified parts of digestive tract
CPT/HCPCS: 36415; 80053; 81001; 85025; 87077; 87088; 87186; 93005

== ENCOUNTER 2021-08-08 17:37 | Emergency (ER) | payer OTHER, MEDICARE ==
[~2021-08-08] VITALS: Ht 160 cm; Wt 110.2 kg
[~2021-08-08 17:37] MED LIST changes: +CEPH500B PO; +DOCU-116 PO; +FERS325 PO
[2021-08-08] MEDS ORDERED: ONDANSETRON 4MG INJ IVP ONE (18:30)
[2021-08-08] MEDS ORDERED: 0.9%NACL 1000ML 1,000 ML IV ONE (18:30)
[2021-08-08 18:41] LABS: BASOPHILS % (AUTO) 0.2 % (0.0-5.0); EOSINOPHILS % (AUTO) 0.2 % (0.0-8.0); HEMATOCRIT 26.2 % (36-48); LYMPHOCYTES % (AUTO) 19.4 % (21.0-51.0); MEAN CORPUSCULAR HEMOGLOBIN 29.8 pg (27.0-33.0); MEAN CORPUSCULAR HGB CONC 29.8 g/dL (32.0-36.0); MONOCYTES % (AUTO) 9.2 % (3.0-13.0); NEUTROPHILS % (AUTO) 70.4 % (40.0-77.0); PLATELET COUNT (AUTO) 264 K/uL (130-400); RED BLOOD CELL COUNT(AUTO) 2.62 MIL/uL (4.00-5.50); RED CELL DISTRIBUTION WIDTH 17.5 % (11.0-15.5); WHITE BLOOD COUNT (AUTO) 16.8 K/uL (4.8-10.8)
[2021-08-08 18:42] LABS: CREATININE 0.9 mg/dL (0.5-1.5)
[2021-08-08 18:51] LABS: BILIRUBIN,TOTAL 0.2 mg/dL (0.2-1.0); TOTAL PROTEIN, SERUM 6.7 g/dL (6.0-8.3)
[2021-08-08 18:55] LABS: APPEARANCE,URINE Turbid (CLEAR); BILIRUBIN,URINE Negative (NEGATIVE); COLOR,URINE Yellow (YELLOW); GLUCOSE, URINE (UA) Negative (NEGATIVE); KETONES,URINE Negative (NEGATIVE); LEUKOCYTE ESTERASE ,URINE Large (NEGATIVE); NITRATE,URINE Positive (NEGATIVE); OCCULT BLOOD,URINE Moderate (NEGATIVE); PH,URINE 5.5 (5.0-8.0); PROTEIN,URINE POS 2+ mg/dL (NEGATIVE); UROBILINOGEN,URINE 0.2 mg/dL (0.2-1.0)
[2021-08-08 19:05] LABS: BACTERIA,URINE Moderate /HPF (None Seen); WBC,URINE 26-50 /HPF (0-1)
[2021-08-08 19:06] LABS: MUCUS,URINE Few LPF (None Seen); SQUAMOUS EPITHELIAL CELL,UR None Seen /HPF (0-2)
[2021-08-08] MEDS ORDERED: CEFTRIAXONE 1G VIAL ONE (20:22)
[2021-08-08] MEDS ORDERED: CEFTRIAXONE 1G VIAL IVP ONE (20:30)
[2021-08-08] MEDS ORDERED: ONDA4TAB10 PO (21:07)
[2021-08-08] MEDS ORDERED: METO-296 PO (21:07)
[2021-08-08] MEDS ORDERED: CEPH500B PO (21:07)
[2021-08-08] MEDS ORDERED: PANT40TA PO (21:07)
[2021-08-08] MEDS ORDERED: METOCLOPRAMIDE 10 MG/2 ML VIAL IVP ONE (21:30)
[2021-08-08] MEDS ORDERED: PANTOPRAZOLE 40 MG/VIAL IVP ONE (21:30)
[2021-08-08 21:38] VITALS: BP 114/40
== END 2021-08-08 21:47 | disposition home or self-care (01) ==
LOC: EDH 17:37
DX: N39.0 Urinary tract infection, site not specified (principal); D64.9 Anemia, unspecified; R11.2 Nausea with vomiting, unspecified; E86.9 Volume depletion, unspecified; Z20.822 Contact with and (suspected) exposure to COVID-19; E11.9 Type 2 diabetes mellitus without complications; I10 Essential (primary) hypertension; M19.90 Unspecified osteoarthritis, unspecified site; Z79.01 Long term (current) use of anticoagulants; Z79.84 Long term (current) use of oral hypoglycemic drugs; Z79.899 Other long term (current) drug therapy; Z90.49 Acquired absence of other specified parts of digestive tract
CPT/HCPCS: 36415; 74176; 80053; 81001; 83690; 84484; 85025; 87077; 87088; 87186; 87635; 87804 ×2; 93005; 96361; 96374; 96375; 99285; C9113; C9803; J0696; J2405; J2765; J7030

== ENCOUNTER → 2021-08-20 | Outpatient (CLI) | payer OTHER, MEDICARE ==
[~2021-08-20] MED LIST changes: +METO-296 PO; +ONDA4TAB10 PO; +PANT40TA PO
== END | disposition home or self-care (01) ==
LOC: SHCH 10:11
PROVIDERS: ATTEND Student in an Organized Health Care Education/Training Program
DX: R60.0 Localized edema (principal)
CPT/HCPCS: 93970

== ENCOUNTER → 2021-10-17 | Outpatient (CLI) | payer OTHER, MEDICARE ==
[2021-10-17 12:25] LABS: BASOPHILS % (AUTO) 0.4 % (0.0-5.0); EOSINOPHILS % (AUTO) 1.4 % (0.0-8.0); LYMPHOCYTES % (AUTO) 30.1 % (21.0-51.0); MEAN CORPUSCULAR HEMOGLOBIN 29.3 pg (27.0-33.0); MEAN CORPUSCULAR HGB CONC 29.6 g/dL (32.0-36.0); MEAN CORPUSCULAR VOLUME 98.9 fL (79-99); NEUTROPHILS % (AUTO) 51.7 % (40.0-77.0); PLATELET COUNT (AUTO) 245 K/uL (130-400); RED BLOOD CELL COUNT(AUTO) 2.73 MIL/uL (4.00-5.50); RED CELL DISTRIBUTION WIDTH 16.4 % (11.0-15.5); WHITE BLOOD COUNT (AUTO) 11.7 K/uL (4.8-10.8)
[2021-10-17 12:50] LABS: BILIRUBIN,TOTAL 0.1 mg/dL (0.2-1.0); CREATININE 0.9 mg/dL (0.5-1.5); MAGNESIUM 1.7 mg/dL (1.80-2.40); POTASSIUM 4.3 mmol/L (3.5-5.1); TOTAL PROTEIN, SERUM 6.5 g/dL (6.0-8.3)
== END | disposition home or self-care (01) ==
LOC: LAB 11:18
PROVIDERS: ATTEND Student in an Organized Health Care Education/Training Program
DX: I48.0 Paroxysmal atrial fibrillation (principal); I10 Essential (primary) hypertension
CPT/HCPCS: 36415; 80053; 80061; 83735; 85025